=== PATIENT | male | born 1965 | race Caucasian/White ===

== ENCOUNTER → 2019-07-25 | Outpatient (CLI) | payer MEDICARE ==
[~2019-07-25] MED LIST: ISOVUE-370 76% 100ML VIAL (Q9967) As Ordered ONE
--- NOTE | 2019-07-25 09:52 | REP ---
Clinical: IVC filter migration. Technique: Axial contrast enhanced images from the lung bases to the pubic symphysis using 100 ml Isovue 370 intravenous contrast material with coronal and sagittal re-formations. Findings: The IVC filter is identified in the infrarenal vena cava approximately 9 mm below the left renal vein and appears relatively centrally located in the IVC. The legs of the filter extend just beyond the contour of the vena cava into the adjacent retroperitoneal fat which appears otherwise normal and without infiltration or pericaval fluid. Liver, spleen, pancreas, bilateral adrenal glands and kidneys are normal. Gallbladder suggests small gallstones, wall thickening and mild focal cystic stranding raising the possibility of cholecystitis and correlation is recommended. The enteric system is without obstruction or acute inflammatory process. Scattered colonic diverticula noted without acute diverticulitis. Pelvis demonstrates normal bladder and age appropriate prostate/seminal vesicles. No ascites. No free air. No obvious adenopathy. Abdominal aorta without aneurysm or dissection. Musculoskeletal structures demonstrate degenerative changes and prior bilateral hip replacement. Impression: 1. IVC filter in relatively normal position as described above without surrounding changes to suggest an acute process. 2. Cannot exclude acute/chronic cholecystitis. 3. Scattered colonic diverticula without acute diverticulitis. Electronically Signed by Heriberto Chen MD 07/25/2019 09:43 A
== END ==
LOC: M RAD 07:48
PROVIDERS: ATTEND Surgery Vascular Surgery
DX: T82.898A Other specified complication of vascular prosthetic devices, implants and grafts, initial encounter (principal); Y83.8 Other surgical procedures as the cause of abnormal reaction of the patient, or of later complication, without mention of misadventure at the time of the procedure
CPT/HCPCS: 74177; Q9967